=== PATIENT | male | born 1980 | race African-American/Black ===

== ENCOUNTER 2022-06-11 08:10 | Emergency (ER) | payer OTHER ==
[~2022-06-11] VITALS: Ht 180.3 cm; Wt 113.0 kg
[2022-06-11] MEDS ORDERED: FLEXERIL5 M1 PO (08:34)
[2022-06-11] MEDS ORDERED: MOTRIN800 MG PO (08:34)
[2022-06-11 08:49] VITALS: BP 140/86
== END 2022-06-16 09:02 | disposition home or self-care (01) | DRG 605 ==
LOC: ED 08:10
DX: S11.92XA Laceration with foreign body of unspecified part of neck, initial encounter (principal); V43.52XA Car driver injured in collision with other type car in traffic accident, initial encounter